=== PATIENT | male | born 1955 | race American Indian/Alaskan Native ===

== ENCOUNTER 2018-10-18 14:27 | Emergency (ER) | payer MEDICARE ==
--- NOTE | 2018-10-18 14:53 | Emergency Department Report ---
Blank Doc - Documentation Documentation: This is a 62-year-old male that presents with uncontrolled HTN. Has been out of his medications. Denies any symptoms or headaches. This initial assessment/diagnostic orders/clinical plan/treatment(s) is/are subject to change based on patient's health status, clinical progression and re- assessment by fellow clinical providers in the ED. Further treatment and workup at subsequent clinical providers discretion. Patient/guardians urged not to elope from the ED as their condition may be serious if not clinically assessed and managed. Initial orders include: 1- Patient sent to [facility] for further evaluation and treatment 2- labs
[2018-10-18 16:28] LABS: Hematocrit 41.5 % (35.5-45.6); Hemoglobin 13.9 gm/dl (11.8-15.2); Mean Corpuscular HGB Conc 34 % (32-34); Mean Corpuscular Volume 85 fl (84-94); Platelet Count 183 K/mm3 (140-440); Red Blood Count 4.87 M/mm3 (3.65-5.03); Red Cell Distribution Width 13.2 % (13.2-15.2)
--- NOTE | 2018-10-18 16:28 | Emergency Department Report ---
ED General Adult HPI - General Chief complaint: High BP Stated complaint: HYPERTENSION Time Seen by Provider: 10/18/18 14:52 Source: patient Mode of arrival: Ambulatory Limitations: No Limitations - History of Present Illness Initial comments: 62-year-old male with history of hypertension presents to ED with complaint of elevated blood pressure. Patient states he has been out of his blood pressure medications since July. Went to see his primary care physician earlier today, states blood pressure was high in the office. States it was initially 190s over 100, but as practitioner made him sit in the office for a little while and it improved to systolic BP of 170s. Patient was given a prescription for amlodipine, which he went and got filled at [facility]. Patient states he took 1 pill and repeated his blood pressure at the store and it was still elevated so he came to the emergency room. Patient denies headache, nausea, vomiting, dizzi ness, chest pain. -: This morning Consistency: constant Improves with: none Worsens with: none Associated Symptoms: denies: confusion, chest pain, headaches, nausea/vomiting, syncope - Related Data Allergies Allergy/AdvReac Type Severity Reaction Status Date / Time No Known Allergies Allergy Unverified 10/18/18 14:30 ED Review of Systems ROS: Stated complaint: HYPERTENSION Other details as noted in HPI Comment: All other systems reviewed and negative Respiratory: denies: shortness of breath Cardiovascular: denies: chest pain Gastrointestinal: denies: nausea, vomiting Neurological: denies: headache, weakness, numbness, paresthesias, vertigo ED Past Medical Hx - Past Medical History Previous Medical History?: Yes Hx Hypertension: Yes Hx Psychiatric Treatment: Yes - Surgical History Past Surgical History?: Yes Additional Surgical History: jaw surgery - Social History Smoking Status: Never Smoker Substance Use Type: None ED Physical Exam - General Limitations: No Limitations General appearance: alert, in no apparent distress - Head Head exam: Present: atraumatic, normocephalic - Eye Eye exam: Present: normal appearance - ENT ENT exam: Present: mucous membranes moist - Neck Neck exam: Present: normal inspection - Respiratory Respiratory exam: Present: normal lung sounds bilaterally. Absent: respiratory distress - Cardiovascular Cardiovascular Exam: Present: regular rate, normal rhythm - GI/Abdominal GI/Abdominal exam: Present: soft. Absent: distended, tenderness - Extremities Exam Extremities exam: Present: normal inspection - Neurological Exam Neurological exam: Present: alert, oriented X3, CN II-XII intact. Absent: motor sensory deficit - Psychiatric Psychiatric exam: Present: normal affect, normal mood - Skin Skin exam: Present: warm, dry, intact, normal color ED Course Vital Signs 10/18/18 14:50 Temperature 98 F Pulse Rate 70 Respiratory 18 Rate Blood Pressure 172/107 O2 Sat by Pulse 97 Oximetry ED Medical Decision Making - Medical Decision Making BP elevated, exam normal, nonfocal. I explained to pt that taking one amlodipine after being off for 3 months will not instantly normalize his blood pressure. Pt given return precautions (ANTHONY, weakness, numbness, slurred speech, dizziness, chest pain). Advised outpt f/u w/ PCP - Differential Diagnosis HTN Critical care attestation.: If time is entered above; I have spent that time in minutes in the direct care of this critically ill patient, excluding procedure time. ED Disposition Clinical Impression: Hypertension Disposition: DC-01 TO HOME OR SELFCARE Is pt being admited?: No Condition: Stable Instructions: Hypertension (ED), Low Sodium Diet (ED), Heart Healthy Diet (ED) Referrals: UVALDO BARRETT MD [Primary Care Provider] - 3-5 Days PRIMARY CAREMD [Referring] - 3-5 Days Time of Disposition: 16:30
[2018-10-18 16:47] VITALS: BP 172/107
[2018-10-18 16:52] LABS: BUN/Creatinine Ratio 13; Blood Urea Nitrogen 10 mg/dL (9-20); Calcium 9.7 mg/dL (8.4-10.2); Hemolysis Index 7
[2018-10-18 18:54] LABS: Basophils % (Manual) 0 % (0.0-1.8); Total Cells Counted 100
[2018-10-18 18:55] LABS: Anisocytosis 1+; Platelet Estimate Consistent w Auto
== END 2018-10-18 17:00 | disposition home or self-care (01) ==
LOC: ED 14:27
DX: I10 Essential (primary) hypertension (principal)
CPT/HCPCS: 36415; 80048; 85007; 85025